=== PATIENT | male | born 1955 | race Caucasian/White ===

== ENCOUNTER → 2019-03-06 | Outpatient (CLI) | payer BC ==
[~2019-03-06] MED LIST: BUPR150T2 PO
== END | disposition home or self-care (01) ==
LOC: LAB SHORT 11:31 → PLD 11:31
DX: D48.5 Neoplasm of uncertain behavior of skin (principal)
CPT/HCPCS: 88305

== ENCOUNTER 2024-06-30 07:18 | Day surgery (SDC) | payer BC ==
[~2024-06-30] VITALS: Ht 177.8 cm; Wt 87.4 kg
[2024-06-30] MEDS ORDERED: propofoL 50 ML IV ONE (07:34)
[2024-06-30] MEDS ORDERED: Lactated Ringer's 1,000 ML IV ONE ×2 (07:34→08:24)
[2024-06-30 09:31] VITALS: BP 113/85
== END 2024-06-30 09:34 | disposition home or self-care (01) ==
LOC: ORSCSDS 07:18
PROVIDERS: Surgery
PROC: 0DJD8ZZ Inspection of Lower Intestinal Tract, Via Natural or Artificial Opening Endoscopic (ICD-10-PCS; principal; 2024-06-30 08:45)
DX: Z12.11 Encounter for screening for malignant neoplasm of colon (principal); Z80.0 Family history of malignant neoplasm of digestive organs; Z86.0100 Personal history of colon polyps, unspecified; Z87.891 Personal history of nicotine dependence; Z79.899 Other long term (current) drug therapy
CPT/HCPCS: J2704; J7120